=== PATIENT | female | born 2000 | race Two or more races ===

== ENCOUNTER 2024-04-05 13:05 | Inpatient (IN) ==
[2024-04-05] MEDS ORDERED: ACETAMINOPHEN 325 MG TAB PO PRN (13:06)
[2024-04-05] MEDS ORDERED: CALCIUM CARBONATE 500 MG CHEWABLE TAB PO PRN (13:06)
[2024-04-05] MEDS ORDERED: OXYTOCIN 30 UNITS/NSS 30 UNITS/500 ML BAG IV PRN ×2 (13:06→23:52)
--- NOTE | 2024-04-05 13:14 | History & Physical Report ---
Date of Service April 05, 2024 Assessment & Plan (1) Encounter for induction of labor: Plan Admit for iol. linton placed for cervical ripening. fetus category one. anticipate . low dose pitocin. Admission and Anticipated Discharge Date Admission Date: April 05, 2024 History of Present Illness Chief Complaint: iol Primary Care Provider: Adarsh Devi DO Patient is a 23yowf with iup at 40 3/7 weeks who presents for iol for postdates. She notes good fm. occasional contractions, no lof/vb. and Delivery Plans Pt had brother of CHD at 9 months in [place] * echo (11/30/23 @ [facility])--normal Anatomy EFW 95% *Growth at 32wks - aga OB Labs: Blood Type O Positive 08/24/23 Antibody Screen NEGATIVE 08/24/23 Hemoglobin 9.6 g/dl (12.0-16.0) L 01/08/24 Hematocrit 29.1 % (37.0-47.0) L 01/08/24 Mean Corpuscular Volume 85.2 fL (80.0-100.0) 08/24/23 Platelet Count 292 K/uL (130-400) 08/24/23 Rubella IgG Antibody Immune (Immune) 08/24/23 Rapid Plasma Reagin Nonreactive (Nonreactive) 08/24/23 Hepatitis B Surface Antigen Neg (Neg) 03/20/20 Hepatitis B Surface Antigen. NON-REACTIVE (NON-REACTIVE) 08/24/23 Hepatitis C Antibody (EIA) NON-REACTIVE (NON-REACTIVE) 08/24/23 HIV (1&2) Ab and P24 Ag, 4th Gener Neg (Neg) 03/20/20 HIV (1&2) Ag and Ab Confirmation NON-REACTIVE (NON-REACTIVE) 08/24/23 Glucose 1 Hour 50 gm Load 151 mg/dl (70-130) H 10/18/23 Maternal Serum Alpha Fetoprotein 58.9 ng/mL 03/20/20 OB Optional Labs: Chlamydia trachomatis RNA Not Detected (NotDetected) 08/24/23 Neisseria gonorrhoeae RNA Not Detected (NotDetected) 08/24/23 Thyroid Stimulating Hormone (TSH) 1.310 uIu/ml (0.300-4.500) 07/14/21 Alpha Fetoprotein Triple Screen SEE NOTE 07/29/20 Labs Reviewed: cf/sma-negative prior --mln afp neg--akh gbs neg--akh low risk panorama--akh GBS negative--akh Allergies Allergy/AdvReac Type Severity Reaction Status Date / Time No Known Allergies Allergy Verified 04/04/24 14:21 Home Medications Medication Instructions Recorded Confirmed Type vitamin with calcium 1 tab PO DAILY 08/17/23 04/05/24 History no.72-iron 27 mg-folic acid 1 mg tablet ( Vitamins Plus Low Iron) Patient History Medical History Miscarriage Surgical History H/O oral surgery No pertinent past surgical history Family History (Updated 04/05/24 @ 13:30 by Monica Louie RN) Mother Ovarian cyst History of hysterectomy Grandmother Hypertension Brother Heart enlargement Denies family history of Ovarian cancer Prostate cancer Diabetes Myocardial infarction Breast cancer Lung cancer Colorectal cancer Stroke Social History Smoking Status: Never smoker Second Hand Exposure: Yes; Do You Dip or Chew Tobacco: No; Hx Alcohol Use: No Hx Substance Use: No Preferred Language: Malay Visual Impairment: Limited Hearing Ability: Normal marital status: Single marital status details: Darius (25) [phone] Current Living Situation: Significant Other Current Living Situation Comment: lives with fob, daughter, no pets. 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 How many Children do You have: 1 Childhood Exposure to Second-Hand Smoke: Yes caffeine: Yes Dental Care, Regularly: Yes Physical Activity Frequency: Does not Exercise Seatbelt Use: always Sunscreen Use: Yes Assistive Devices: Glasses OB History g1--present [employer] History noncontributory Physical Exam Constitutional: WD/WN, vitals as above Gastrointestinal (Abdomen): soft, gravid, nt Psychiatric: A+Ox3, euthymic affect Genitourinary: cx--1/50/-2/mid/soft toco--meena efm--140s with mod variability, accels to 150s, no decels speculum placed, cx visualized, linton threaded through, 30 cc of sterile water use. tolerated well. Coding Level of Care Code None Diagnoses Encounter for induction of labor Z34.90
[2024-04-05 13:49] LABS: Hematocrit (blood only) 28.8 % (37.0-47.0); Hemoglobin 8.8 g/dl (12.0-16.0); Mean Corpuscular Hemoglobin 22.8 pg (25.0-34.0); Mean Corpuscular Hgb Conc 30.6 g/dL (32.0-36.0); Mean Corpuscular Volume 74.6 fL (80.0-100.0); Mean Platelet Volume 9.7 fL (9.4-12.4); Platelet Count 352 K/uL (130-400); RDW Coefficient of Variation 16.8 % (11.5-14.5); RDW Standard Deviation 44.9 fL (36.4-46.3); Red Blood Count 3.86 M/uL (4.20-5.40); White Blood Count 7.73 K/ul (4.8-10.8)
[2024-04-05] MEDS: LACTATED RINGER'S 1,000 ML IV PRN (14:04)
[2024-04-05] MEDS: OXYTOCIN 30 UNITS/NSS 30 UNITS/500 ML BAG IV PRN (14:15)
[2024-04-05] MEDS ORDERED: SODIUM CHLORIDE 0.9% 250 ML IV PRN (14:35)
--- NOTE | 2024-04-05 19:52 | Labor Progress Brief Note ---
Date of Service April 05, 2024 Subjective late entry because of patient care issues bulb has fallen out. Assessment & Plan (1) Encounter for induction of labor: Plan continue current management. Patient would like to do without epidural. Pushed for 10 minutes last delivery. Fetus overall category one. anticipate . Admission and Anticipated Discharge Date Admission Date: April 05, 2024 Physical Exam Physical Exam: difficult exam as cx is posterior but able to hook it and bring forward cx--3/75/-2 arom for clear fluid toco--q2-4 min, pit at 5, palpate mild efm--now 130s with mod variability, accels to 160s, rare variable with contraction. Results & Data Vital Signs (Past 12 Hours) Vital Signs Temp Pulse Resp BP 04/05/24 19:41 81 04/05/24 19:41 104/58 L 04/05/24 19:04 82 04/05/24 19:04 126/73 04/05/24 19:00 36.8 C 04/05/24 18:50 18 04/05/24 18:50 18 04/05/24 18:20 18 04/05/24 18:20 18 04/05/24 17:20 16 04/05/24 17:20 36.8 C 16 04/05/24 17:17 88 04/05/24 17:17 112/70 04/05/24 16:50 18 04/05/24 16:50 18 04/05/24 16:24 85 04/05/24 16:24 118/66 04/05/24 16:23 18 04/05/24 16:23 18 04/05/24 16:20 18 04/05/24 16:20 18 04/05/24 15:16 79 04/05/24 15:16 121/70 04/05/24 14:50 18 04/05/24 14:50 18 04/05/24 14:20 18 04/05/24 14:20 18 04/05/24 13:38 112 H 04/05/24 13:38 115/74 04/05/24 13:11 122 H 121/69 04/05/24 13:09 18 04/05/24 13:09 37.0 C 18 Coding Level of Care Code None Diagnoses Encounter for induction of labor Z34.90
[2024-04-05] MEDS: ONDANSETRON INJ 2 MG/ML 2 ML VIAL IV SCH (21:54)
--- NOTE | 2024-04-05 22:52 | Labor Progress Brief Note ---
Date of Service April 05, 2024 Subjective uncomfortable with contractions. Assessment & Plan (1) Encounter for induction of labor: Plan Now in active labor. fetus overall reassuring category two. anticipate . Admission and Anticipated Discharge Date Admission Date: April 05, 2024 Physical Exam Physical Exam: cx--6/100/0 toco--q 2-3min, pit at 13 efm--140s with mod variability, +accels, variables with some contractions Results & Data Vital Signs (Past 12 Hours) Vital Signs Temp Pulse Resp BP Pulse Ox 04/05/24 22:45 100 04/05/24 22:45 73 04/05/24 22:40 100 04/05/24 22:40 89 04/05/24 22:35 100 04/05/24 22:35 83 04/05/24 22:30 100 04/05/24 22:30 84 04/05/24 22:25 100 04/05/24 22:25 79 04/05/24 22:12 77 04/05/24 22:12 133/65 04/05/24 21:00 18 04/05/24 21:00 36.6 C 18 04/05/24 20:45 81 04/05/24 20:45 117/73 04/05/24 19:41 81 04/05/24 19:41 104/58 L 04/05/24 19:04 82 04/05/24 19:04 126/73 04/05/24 19:00 36.8 C 04/05/24 18:50 18 04/05/24 18:50 18 04/05/24 18:20 18 04/05/24 18:20 18 04/05/24 17:20 16 04/05/24 17:20 36.8 C 16 04/05/24 17:17 88 04/05/24 17:17 112/70 04/05/24 16:50 18 04/05/24 16:50 18 04/05/24 16:24 85 04/05/24 16:24 118/66 04/05/24 16:23 18 04/05/24 16:23 18 04/05/24 16:20 18 04/05/24 16:20 18 04/05/24 15:16 79 04/05/24 15:16 121/70 04/05/24 14:50 18 04/05/24 14:50 18 04/05/24 14:20 18 04/05/24 14:20 18 04/05/24 13:38 112 H 04/05/24 13:38 115/74 04/05/24 13:11 122 H 121/69 04/05/24 13:09 18 04/05/24 13:09 37.0 C 18 Coding Level of Care Code None Diagnoses Encounter for induction of labor Z34.90
[2024-04-05] MEDS: LIDOCAINE 1% LOCAL 20 ML VIAL INFIL PRN (23:34)
--- NOTE | 2024-04-05 23:46 | Delivery Summary ---
Vaginal Delivery Summary Date of Service April 05, 2024 Vaginal Delivery Summary and 1st Degree LAC (and right labial) Pre-operative Diagnosis: at 40 weeks iol Post-operative Diagnosis: same Procedure: linton bulb pitocin arom left labial and first degree laceration and repair QBL: 55cc Anesthesia: local infiltration of lidocaine Procedure: Patient presents to labor and delivery for postdates iol. Linton bulb placed and pitocin started. When the bulb fell out, arom for clear fluid. The patient progressed to c/c/+2. The patient pushed for 5 minutes to deliver a viable female infant in mercy position. The nose and mouth were bulb suctioned on the perineum and the rest of the was then delivered without difficulty. Loose nuchal cord x 1 reduced. The baby was vigorous. The nose and mouth were again bulb suctioned and the was placed in the maternal abdomen for drying and attention. Cord was clamped and cut at one minute of life. Cord blood and segment obtained. Placenta delivered spontaneous, intact with a three vessel cord. Cervix/sulci/rectum were intact. A small first degree perineal laceration and left labial laceration was repaired in the normal standard fashion. Hemostasis obtained with dilute pitocin and fundal massage. Apgars were 8/9. Mother and baby doing well at the end of the delivery. [facility] [place] Delivery Charge Delivery Type Details: and 1st Degree LAC (and right labial)
[2024-04-05] MEDS ORDERED: DIPHTHER/TETAN/PERTUS Vaccine (Tdap, Adol/Adult) 0.5mL IM ONE (23:52)
[2024-04-05] MEDS ORDERED: HYDROCORTISONE ACETATE 25 MG SUPP PR PRN (23:52)
[2024-04-05] MEDS ORDERED: oxyCODONE/ACETAMINOPHEN 5mg/325mg TAB PO PRN (23:52)
[2024-04-06] MEDS: IBUPROFEN 600 MG TAB PO PRN (00:47)
--- NOTE | 2024-04-06 05:53 | Obstetrical Progress Note ---
Date of Service <Anabell Lee MD - Last Filed: 04/06/24 06:53> April 06, 2024 Assessment & Plan <Anabell Lee MD - Last Filed: 04/06/24 06:53> (1) Encounter for induction of labor: - with 1st deg Lac, PPD #1 - Both mother and baby doing fine. - Diet: Normal, Ambulation: Started, Breast feeding - Plan to discharge tomorrow after observation for 24 hours will be completed by mid-night. - Encouraged proper breast feeding, will help with BF at hospital as well. 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 Reports feeling well this morning. She has abdominal cramping and 3-4/10 pain well managed on analgesics. Voided just when i was in room. Tolerated regular meals last night and able to ambulate some( to toilet). Has not taken meal this morning yet. She is not aware passing gas and bowel movements but she does not feel distended. Persistent lochia with some improvement this morning. Currently . Review of Systems Denies fever, chills, sweats. Denies SOB, difficulty breathing, chest pain, palpitations, and chest pressure. Denies breast pain. Denies dysuria. Denies headache or changes in vision. Physical Exam <Anabell Lee MD - Last Filed: 04/06/24 06:53> General: Alert and oriented. No acute distress. CV: Regular rate and rhythm. No murmurs. Respiratory: CTA bilaterally. No rhonchi, wheezes, or crackles. No increased work of breathing. Abdomen: Positive bowel sounds. Soft, nontender, non distended. Uterus: Fundus firm and palpable at the level of umbilicus, well involuted Lower extremities: Minimal edema. No deep calf pain. Results & Data <Anabell Lee MD - Last Filed: 04/06/24 06:53> Vital Signs (Past 12 Hours) Vital Signs Temp Pulse Pulse Resp BP BP Pulse Ox 04/06/24 03:05 36.5 C 65 18 101/64 98 04/06/24 01:40 18 04/06/24 01:39 87 120/56 L 04/06/24 01:24 75 114/58 L 04/06/24 01:10 18 04/06/24 01:09 73 118/64 04/06/24 00:54 68 118/67 04/06/24 00:40 18 04/06/24 00:39 76 124/58 L 04/06/24 00:25 20 04/06/24 00:24 82 126/59 L 04/06/24 00:10 18 04/06/24 00:09 70 123/68 04/05/24 23:55 18 04/05/24 23:54 80 04/05/24 23:54 119/65 04/05/24 23:40 18 04/05/24 23:39 76 04/05/24 23:39 115/59 L 04/05/24 23:33 81 04/05/24 23:33 122/71 04/05/24 23:25 100 04/05/24 23:25 84 04/05/24 23:20 100 04/05/24 23:20 93 H 04/05/24 23:15 100 04/05/24 23:15 81 04/05/24 23:10 99 04/05/24 23:10 79 04/05/24 23:05 100 04/05/24 23:05 78 04/05/24 23:00 36.8 C 04/05/24 23:00 100 04/05/24 23:00 83 04/05/24 22:55 100 04/05/24 22:55 82 04/05/24 22:52 80 04/05/24 22:52 126/72 04/05/24 22:50 100 04/05/24 22:50 77 04/05/24 22:45 100 04/05/24 22:45 73 04/05/24 22:40 100 04/05/24 22:40 89 04/05/24 22:35 100 04/05/24 22:35 83 04/05/24 22:30 100 04/05/24 22:30 84 04/05/24 22:25 100 04/05/24 22:25 79 04/05/24 22:12 77 04/05/24 22:12 133/65 04/05/24 21:00 18 04/05/24 21:00 36.6 C 18 04/05/24 20:45 81 04/05/24 20:45 117/73 04/05/24 19:41 81 04/05/24 19:41 104/58 L 04/05/24 19:04 82 04/05/24 19:04 126/73 04/05/24 19:00 36.8 C 04/05/24 18:50 18 04/05/24 18:50 18 04/05/24 18:20 18 04/05/24 18:20 18 O2 Del Method 04/06/24 03:05 Room Air 04/06/24 01:40 04/06/24 01:39 04/06/24 01:24 04/06/24 01:10 04/06/24 01:09 04/06/24 00:54 04/06/24 00:40 04/06/24 00:39 04/06/24 00:25 04/06/24 00:24 04/06/24 00:10 04/06/24 00:09 04/05/24 23:55 04/05/24 23:54 04/05/24 23:54 04/05/24 23:40 04/05/24 23:39 04/05/24 23:39 04/05/24 23:33 04/05/24 23:33 04/05/24 23:25 04/05/24 23:25 04/05/24 23:20 04/05/24 23:20 04/05/24 23:15 04/05/24 23:15 04/05/24 23:10 04/05/24 23:10 04/05/24 23:05 04/05/24 23:05 04/05/24 23:00 04/05/24 23:00 04/05/24 23:00 04/05/24 22:55 04/05/24 22:55 04/05/24 22:52 04/05/24 22:52 04/05/24 22:50 04/05/24 22:50 04/05/24 22:45 04/05/24 22:45 04/05/24 22:40 04/05/24 22:40 04/05/24 22:35 04/05/24 22:35 04/05/24 22:30 04/05/24 22:30 04/05/24 22:25 04/05/24 22:25 04/05/24 22:12 04/05/24 22:12 04/05/24 21:00 04/05/24 21:00 04/05/24 20:45 04/05/24 20:45 04/05/24 19:41 04/05/24 19:41 04/05/24 19:04 04/05/24 19:04 04/05/24 19:00 04/05/24 18:50 04/05/24 18:50 04/05/24 18:20 04/05/24 18:20 Supervising Physician <Светлана Ferguson MD, FACOG - Last Filed: 04/06/24 07:05> Co-Signing Physician Notes Resident Physician Supervision Note: I interviewed and examined the patient. Discussed with Dr. Lee and agree with findings and plan as documented in the note. Any exceptions or clarifications are listed here: Doing well about 8 hours pp. continued routine care. Documented By: Светлана Ferguson MD, FACOG Resident Activity Tracking <Anabell Lee MD - Last Filed: 04/06/24 06:53> Resident Involvement: Resident Care Provided Care Provided: OB Delivery
[2024-04-06] MEDS: BENZOCAINE 20% SPRY 85 APPLN/85 GM CAN EXT PRN (06:36)
[2024-04-06 07:19] LABS: Hematocrit (blood only) 28.5 % (37.0-47.0); Hemoglobin 8.6 g/dl (12.0-16.0)
[2024-04-06] MEDS: DOCUSATE SODIUM 100 MG CAP PO SCH (08:02)
[2024-04-06] MEDS: PRENATAL VITAMIN 1 TAB PO SCH (08:02)
[2024-04-06] MEDS ORDERED: bisacodyL 5 MG TABEC PO SCH (20:00)
[2024-04-06] MEDS: ACETAMINOPHEN 325 MG TAB PO PRN (22:12)
[2024-04-06 23:10] VITALS: TEMP 97.9
--- NOTE | 2024-04-07 06:44 | Obstetrical Progress Note ---
Date of Service <Anabell Lee MD - Last Filed: 04/07/24 06:44> April 07, 2024 Assessment & Plan <Anabell Lee MD - Last Filed: 04/07/24 06:44> (1) Encounter for induction of labor: - with 1st deg Lac, PPD #2 - Both mother and baby doing fine. - Diet: Normal, Ambulation: Started, Breast feeding - Plan to discharge today <Tali Hancock DO - Last Filed: 04/07/24 07:17> (1) Encounter for induction of labor: Subjective <Anabell Lee MD - Last Filed: 04/07/24 06:44> Ambulation: ambulating normally Voiding: no voiding problems Physical Exam <Anabell Lee MD - Last Filed: 04/07/24 06:44> General: Alert and oriented. No acute distress. CV: Regular rate and rhythm. No murmurs. Respiratory: CTA bilaterally. No rhonchi, wheezes, or crackles. No increased work of breathing. Abdomen: Positive bowel sounds. Soft, nontender, non distended. Uterus: Fundus firm and palpable few cm below umbilicus, well involuted Lower extremities: Minimal edema. No deep calf pain. Results & Data <Anabell Lee MD - Last Filed: 04/07/24 06:44> Vital Signs (Past 12 Hours) Vital Signs Temp Pulse Resp BP Pulse Ox O2 Del Method 04/06/24 23:08 36.6 C 84 18 115/63 98 Room Air 04/06/24 19:01 36.5 C 64 18 108/68 100 Room Air Supervising Physician <Tali Hancock DO - Last Filed: 04/07/24 07:17> Co-Signing Physician Notes Resident Physician Supervision Note: I interviewed and examined the patient. Discussed with Dr. Lee and agree with findings and plan as documented in the note. Any exceptions or clarifications are listed here: PPD#2 doing well. DC home today, instructions reviewed, followup 6w PP. Documented By: Tali Hancock DO
[2024-04-07 10:46] VITALS: BP 104/65; PULSE 73; RESP 16; O2SAT 99
[2024-04-07] MEDS ORDERED: bisacodyL 10 MG SUPP PR PRN (23:52)
== END 2024-04-07 13:00 | disposition home or self-care (01) | DRG 807 ==
LOC: 4S1 13:05 → 4E2 04-06 02:08